=== PATIENT | female | born 1955 | race Caucasian/White ===

== ENCOUNTER 2019-07-17 13:18 | Emergency (ER) | payer OTHER ==
[~2019-07-17] VITALS: Ht 175.3 cm; Wt 117.9 kg
[~2019-07-17 13:18] MED LIST: LANTUS100 U/ML; LASIX20 MG; LOTREL 5-20 MG1 CAP; NORTUSS-EX LIQ118 ML PO; NOVOLOG MI100 UNIT/1; PROVENTIL3 ML/2.5 M IH; SYNTHROID200 MCG; VICTOZA 2-0.6 MG/0.1; ZITHROMAX TRI-500 MG PO
[2019-07-17] MEDS ORDERED: HUMULIN R500 UNIT/1 SQ (13:53)
[2019-07-17] MEDS ORDERED: METFORMIN HCL1000 MG PO (13:53)
== END 2019-07-17 18:26 | disposition home or self-care (01) ==
LOC: ER 13:18
DX: J40 Bronchitis, not specified as acute or chronic (principal)

== ENCOUNTER 2019-10-10 14:06 | Emergency (ER) | payer OTHER ==
[~2019-10-10] VITALS: Ht 175.3 cm; Wt 131.1 kg
[~2019-10-10 14:06] MED LIST changes: +HUMULIN R500 UNIT/1 SQ; +METFORMIN HCL1000 MG PO
[2019-10-10] MEDS ORDERED: ULTRACET PO (16:25)
== END 2019-10-10 16:45 | disposition home or self-care (01) ==
LOC: ER 14:06
DX: M54.5 Low back pain (principal)